=== PATIENT | female | born 1955 | race Caucasian/White ===

== ENCOUNTER 2018-06-18 14:38 | Emergency (ER) | payer BC ==
[~2018-06-18] VITALS: Ht 157.5 cm; Wt 55.3 kg
[2018-06-18] MEDS ORDERED: ONDANSETRON HCL/PF 4 MG/2 ML VIAL ONE (14:59)
[2018-06-18] MEDS ORDERED: MORPHINE SULFATE INJ 2 MG/ML DISP.SYRIN IV ONE (15:00)
[2018-06-18] MEDS ORDERED: ONDANSETRON HCL/PF 4 MG/2 ML VIAL IVP ONE (15:00)
[2018-06-18] MEDS ORDERED: CEFAZOLIN 1 GM in IV D5W 50 ML IV ONE (15:00)
[2018-06-18] MEDS ORDERED: TDAP [DIPH/PERTUSSIS/TET] 0.5 ML VIAL IM ONE ×2 (15:00→15:08)
[2018-06-18] MEDS ORDERED: MORPHINE SULFATE INJ 4 MG/ML DISP.SYRIN ONE (15:00)
--- NOTE | 2018-06-18 15:07 | NUR ---
PT REFUSED MEDS AT THIS TIME. AWARE.
[2018-06-18 15:09] LABS: HEMATOCRIT 41 % (33-45); HEMOGLOBIN 13.7 g/dL (11.5-14.8); MEAN CORPUSCULAR VOLUME 85 fL (82-100); RED BLOOD CELL COUNT(AUTO) 4.78 MIL/uL (4.0-5.2); WHITE BLOOD COUNT (AUTO) 6.6 K/uL (4.3-11.0)
[2018-06-18 15:10] LABS: BASOPHILS # (AUTO) 0.1 /CMM (0.0-0.2); EOSINOPHILS % (AUTO) 8.7 % (0.0-6.0); LYMPHOCYTES # (AUTO) 2.5 /CMM (0.8-4.8); LYMPHOCYTES % (AUTO) 37.2 % (20.0-44.0); MEAN CORPUSCULAR HEMOGLOBIN 29 PG (26.0-33.0); MEAN CORPUSCULAR HGB CONC 34 g/dl (31.0-36.0); MONOCYTES # (AUTO) 0.3 /CMM (0.1-1.30); MONOCYTES % (AUTO) 4.5 % (2.0-12.0); NEUTROPHILS # (AUTO) 3.2 /CMM (1.8-8.9); NEUTROPHILS % (AUTO) 48.6 % (43.0-81.0); PLATELET COUNT (AUTO) 222 /CMM (150-450); RDW COEFFICIENT OF VARIATION 14.5 (11.5-15.0)
[2018-06-18 15:19] LABS: CALCIUM, SERUM 8.7 mg/dL (8.5-10.1); CREATININE 0.6 mg/dL (0.6-1.3)
[2018-06-18 15:22] LABS: INR 0.94 (0.85-1.15)
--- NOTE | 2018-06-18 15:40 | NUR ---
DR. LEON AT BS.
--- NOTE | 2018-06-18 15:50 | NUR ---
Patient does not wish to proceed with medical care recommended by . Patient given information related to possible complications, up to and including , which could occur as a result of leaving the hospital at this time. Patient verbalizes understanding of risks involved due to leaving against medical advice. Patient has signed AMA form.
[2018-06-18 16:01] VITALS: BP 107/75
== END 2018-06-18 16:12 | disposition left against medical advice (07) ==
LOC: ER 14:41
DX: S67.22XA Crushing injury of left hand, initial encounter (principal); S61.512A Laceration without foreign body of left wrist, initial encounter; S64.92XA Injury of unspecified nerve at wrist and hand level of left arm, initial encounter; Z85.3 Personal history of malignant neoplasm of breast; Z85.528 Personal history of other malignant neoplasm of kidney; Z90.5 Acquired absence of kidney; W31.89XA Contact with other specified machinery, initial encounter; Y93.89 Activity, other specified; Y92.89 Other specified places as the place of occurrence of the external cause; Y99.8 Other external cause status
CPT/HCPCS: 36415; 73120-TC; 80048-TC; 85025-TC; 85730-TC; 90715; A4606; J0690; J2270; J2405; J7060; Z7610